=== PATIENT | male | born 1965 | race Caucasian/White ===

== ENCOUNTER → 2016-11-17 | Outpatient (CLI) | payer BC ==
--- NOTE | 2016-11-17 15:22 | RAD ---
EXAM DESCRIPTION: Left knee series. CLINICAL HISTORY: Left knee pain. COMPARISON: None. TECHNIQUE: Three views of the left knee are submitted for interpretation. FINDINGS: Significant tricompartment degenerative change with large osteophytes noted. There is no fracture, dislocation, obvious joint effusion or suspicious radiopaque foreign body. Small joint effusion noted. IMPRESSION: Advanced tricompartment degenerative change with osteophyte formation in all 3 compartments. Electronically signed by: Brandon Singer MD 11/17/2016 15:20
--- NOTE | 2016-11-17 15:22 | RAD ---
EXAM DESCRIPTION: XR KNEE 4 OR MORE VIEWS CLINICAL HISTORY: 51 y/o ,M, PAIN IN RIGHT KNEE COMPARISON: None. IMPRESSION: Joint space loss noted within the medial compartment of right knee. No osteophyte formation noted within the 3 compartments. Small joint effusion. No evidence of fracture or osseous lesion. When compared to the left knee there is significantly less degenerative changes seen within the right knee on today's exam. Electronically signed by: Brandon Singer MD 11/17/2016 15:21
--- NOTE | 2016-11-17 15:24 | RAD ---
EXAM DESCRIPTION: Pelvis series. CLINICAL HISTORY: Bilateral hip pain. COMPARISON: None. TECHNIQUE: One view was submitted for evaluation. FINDINGS: No fracture, dislocation, or radiopaque foreign body is seen. Pelvic ring appears intact. Soft tissues are unremarkable. IMPRESSION: No evidence of joint space loss on today's exam within bilateral hips. No osteophyte formation or subchondral sclerosis. Electronically signed by: Brandon Singer MD 11/17/2016 15:22
== END | disposition home or self-care (01) ==
LOC: RAD 14:35
PROVIDERS: ATTEND Orthopaedic Surgery
DX: M25.552 Pain in left hip (principal); M25.562 Pain in left knee

== ENCOUNTER → 2017-03-30 | Outpatient (CLI) | payer BC | END | disposition home or self-care (01) | LOC: LAB.O 12:47 | PROVIDERS: ATTEND Orthopaedic Surgery | DX: Z01.818 Encounter for other preprocedural examination (principal) ==

== ENCOUNTER 2017-04-13 05:49 | Inpatient (IN) | payer BC ==
--- NOTE | 2017-04-12 09:53 | HP ---
CHIEF COMPLAINT: Left knee pain. HISTORY OF PRESENT ILLNESS: Mr. Ledezma is a 51-year-old male with a history of severe knee pain bilaterally. The left seems to have always bothered him more than the right. He has had injections, anti-inflammatories and physical therapy. Because of the failure of these conservative measures, he has requested operative intervention. After discussing the risks, benefits and alternatives to operative intervention, the patient has given informed consent for total knee arthroplasty. PAST SURGICAL HISTORY: None. MEDICATIONS: None current. ALLERGIES: NO KNOWN DRUG ALLERGIES. CODE STATUS: Full code. IMMUNIZATIONS: Up to date. SOCIAL HISTORY: The patient does not smoke or use any illicit drugs. He does drink on occasion. FAMILY HISTORY: None pertinent to today's complaint. REVIEW OF SYSTEMS: Negative except as indicated in the History of Present Illness. PHYSICAL EXAMINATION: VITAL SIGNS: Blood pressure 158/103. Pulse 74. Height 6'. Weight 245. MENTAL STATUS: The patient is awake, alert, and is able to give a good history and participate in the physical. The patient is oriented to person, place and time. SKIN: Normal tone and turgor. HEENT: Normocephalic, atraumatic. Pupils equal, round and reactive. Mucosal membranes are moist. NECK: Normal range of motion. No thyromegaly, no lymphadenopathy. CHEST: Normal respiratory excursion. CARDIAC: Regular rate and rhythm. No murmurs, rubs or gallops. MUSCULOSKELETAL: Bilateral upper extremities show full active range of motion. He has intact sensation. Strength is 5/5. They are warm and well perfused. There is no deformity. The bilateral hips show full range of motion of without pain. The right knee shows range of motion from full extension to about 115 degrees. He has crepitus and pain throughout. He has no overall deformity. Sensation is intact. It is warm and well perfused. The left knee shows range of motion from 0 to about 115. He has crepitus throughout. He has a mild varus deformity. There is no varus/valgus or anterior/posterior laxity. Strength is 5/5. IMAGING: X-rays show advanced arthritis. ASSESSMENT: 1. Osteoarthritis. PLAN: The plan at this point is for total knee arthroplasty. We have discussed the risks, benefits, and alternatives to that and the patient has given informed consent. #[id number] [facility]
[~2017-04-13 05:49] MED LIST: LACTATED RINGERS 1,000 ML ONE; SODIUM CHL 0.9% 100ML MINI-BAG 200 ML IVPB ONE; SODIUM CHLORIDE 0.9% 250ML 250 ML ONE; TRANEXAMIC ACID 1,000 MG/10 ML VIAL ONE; VANCOMYCIN HCL INJ 1,000 MG VIAL IVPB ONE; ceFAZolin SODIUM 1 GM VIAL ONE
[2017-04-13] MEDS ORDERED: ceFAZolin SODIUM 1 GM VIAL ONE ×4 (06:16→20:20)
[2017-04-13] MEDS ORDERED: MORPHINE SULF *EPIDURAL* 1 MG/ML VIAL ONE (06:22)
[2017-04-13] MEDS ORDERED: MIDAZOLAM INJ 5 MG/5 ML VIAL ONE (06:22)
[2017-04-13] MEDS ORDERED: LACTATED RINGERS 1,000 ML ONE (06:23)
[2017-04-13] MEDS ORDERED: LIDOCAINE 2 % GEL 5 ML TUBE TOP ONE (06:23)
[2017-04-13] MEDS ORDERED: TRANEXAMIC ACID 1,000 MG/10 ML VIAL IV ONE (06:29)
[2017-04-13] MEDS ORDERED: fentaNYL CITRATE INJ 50 MCG/ML AMP ONE (06:35)
[2017-04-13] MEDS ORDERED: SODIUM CHL 0.9% 50ML MIN-BAG+ 50 ML IVPB ONE (06:37)
[2017-04-13] MEDS ORDERED: PROMETHAZINE HCL INJ 25 MG/ML VIAL ONE (06:37)
[2017-04-13] MEDS ORDERED: PROMETHAZINE HCL INJ 25 MG/ML VIAL IVPB ONE (06:41)
[2017-04-13] MEDS ORDERED: VANCOMYCIN HCL INJ 1,000 MG VIAL IVPB ONE ×2 (06:44→17:48)
[2017-04-13] MEDS ORDERED: SODIUM CHLORIDE 0.9% 100ML 100 ML IVPB ONE ×3 (07:03→20:20)
[2017-04-13] MEDS: VANCOMYCIN HCL INJ 1,000 MG VIAL IVPB ONE ×2 (08:08→09:05)
[2017-04-13] MEDS: ceFAZolin SODIUM 1 GM VIAL ONE ×2 (08:08→09:05)
[2017-04-13] MEDS: BUPIVACAINE 0.25% W/EPI 50 ML VIAL INJ ONE ×2 (08:08→09:35)
[2017-04-13] MEDS ORDERED: ACETAMINOPHEN 325 MG TAB PO PRN (09:19)
[2017-04-13] MEDS ORDERED: TEMAZEPAM 15 MG CAP PO PRN (09:19)
[2017-04-13] MEDS ORDERED: DEX 5% W/NACL 0.45% 1000ML 1,000 ML IVS PRN (09:19)
[2017-04-13] MEDS ORDERED: NALOXONE HCL INJ 0.4 MG/ML VIAL IV PRN (09:19)
[2017-04-13] MEDS ORDERED: ACETAMINOPHEN 500 MG TAB PO PRN (09:19)
[2017-04-13] MEDS ORDERED: BISACODYL SUPPOSITORY 10 MG PR PRN (09:19)
[2017-04-13] MEDS ORDERED: BENZOCAINE-MENTH LOZ (CEPACOL) 1 EA LOZ MT PRN (09:19)
[2017-04-13] MEDS ORDERED: MAGNESIUM HYDROXIDE 30 ML UD PO PRN (09:19)
[2017-04-13] MEDS ORDERED: MORPHINE SULFATE INJ 10 MG/ML VIAL IV PRN (09:19)
[2017-04-13] MEDS ORDERED: MORPHINE SULFATE INJ 10 MG/ML VIAL IM PRN (09:19)
[2017-04-13] MEDS ORDERED: HYDROcodone 5MG/APAP 325MG 1 EA TAB PO PRN (09:19)
[2017-04-13] MEDS ORDERED: PROMETHAZINE HCL INJ 25 MG in SODIUM CHLORIDE 0.9% 50ML 50 ML IVPB PRN (09:19)
[2017-04-13] MEDS ORDERED: TRANEXAMIC ACID INJ 1,000 MG in SODIUM CHLORIDE 0.9% 100ML 100 ML IVPB ONE (09:19)
[2017-04-13] MEDS ORDERED: ALUMINUM & MAGNESIUM HYDROXIDE 30 ML UD PO PRN (09:19)
[2017-04-13] MEDS ORDERED: SODIUM CHLORIDE 0.9% (FLUSH) 10 ML SYG IV PRN (09:19)
[2017-04-13] MEDS ORDERED: ONDANSETRON INJ 4 MG/2 ML VIAL IV PRN (09:19)
[2017-04-13] MEDS ORDERED: ZOLPIDEM TARTRATE 5 MG TAB PO PRN (09:19)
[2017-04-13] MEDS ORDERED: PROMETHAZINE HCL INJ 12.5 MG in SODIUM CHLORIDE 0.9% 50ML 50 ML IVPB PRN (09:19)
[2017-04-13] MEDS ORDERED: MORPHINE PCA 1 MG/ML 100 ML BAG IVPB ONE ×2 (09:28→09:53)
[2017-04-13] MEDS ORDERED: MORPHINE PCA 1 MG/ML 100ML 1 BAG in PREMIX BAG 1 BAG IVPB SCH (09:30)
[2017-04-13] MEDS ORDERED: IV SET AND CAP CHANGE INJ INJ SCH (09:30)
[2017-04-13] MEDS ORDERED: LIDOCAINE 1% 10 ML VIAL INJ ONE (12:00)
[2017-04-13] MEDS ORDERED: PROPOFOL 200 MG/20 ML VIAL IV ONE (12:00)
[2017-04-13] MEDS: ceFAZolin SODIUM 2 GM in SODIUM CHLORIDE 0.9% 100ML 100 ML IVPB SCH ×2 (16:08→23:53)
[2017-04-13] MEDS ORDERED: SODIUM CHLORIDE 0.9% 250ML 250 ML ONE (17:47)
[2017-04-13] MEDS: VANCOMYCIN HCL INJ 1,000 MG in SODIUM CHLORIDE 0.9% 250ML 250 ML IVPB SCH (18:22)
[2017-04-13] MEDS ORDERED: diphenhydrAMINE HCL 25 MG CAP PO PRN (19:01)
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
[2017-04-13] MEDS ORDERED: ENOXAPARIN SODIUM 30 MG/0.3 ML SYG SUBCU ONE (20:20)
[2017-04-13] MEDS: DOCUSATE CALCIUM 240 MG CAP PO SCH (21:01)
[2017-04-13] MEDS: ENOXAPARIN SODIUM 30 MG/0.3 ML SYG SUBCU SCH (21:01)
[2017-04-14] MEDS: HYDROcodone 10MG/APAP 325MG 1 EA TAB PO PRN ×5 (00:10→20:38)
[2017-04-14] MEDS ORDERED: SODIUM CHLORIDE 0.9% 250ML 250 ML ONE (05:11)
[2017-04-14] MEDS ORDERED: VANCOMYCIN HCL INJ 1,000 MG VIAL IVPB ONE (05:11)
[2017-04-14] MEDS: VANCOMYCIN HCL INJ 1,000 MG in SODIUM CHLORIDE 0.9% 250ML 250 ML IVPB SCH (06:13)
[2017-04-14] MEDS ORDERED: MAGNESIUM OXIDE 400 MG TAB ONE (07:45)
[2017-04-14] MEDS ORDERED: ceFAZolin SODIUM 1 GM VIAL ONE (07:46)
[2017-04-14] MEDS ORDERED: SODIUM CHLORIDE 0.9% 100ML 100 ML IVPB ONE (07:46)
[2017-04-14] MEDS: MAGNESIUM OXIDE 400 MG TAB PO SCH (07:51)
[2017-04-14] MEDS: CYCLOBENZAPRINE HCL 10 MG TAB PO PRN ×2 (07:51→16:57)
[2017-04-14] MEDS: ENOXAPARIN SODIUM 30 MG/0.3 ML SYG SUBCU SCH ×3 (08:01→20:39)
--- NOTE | 2017-04-14 08:15 | OP ---
DATE OF PROCEDURE: 04/13/17 PREOPERATIVE DIAGNOSIS: 1. Osteoarthritis of the knee. POSTOPERATIVE DIAGNOSIS: 1. Osteoarthritis of the knee. PROCEDURE: 1. Total knee arthroplasty. SURGEON: Vishal Gomez MD. CASE COORDINATOR: Osiel Raymond CST, SA-C. ANESTHESIA: General. COMPLICATIONS: None. FINDINGS: Severe arthritis of the knee with varus deformity. INDICATION: Mr. Ledezma has a long history of knee pain secondary to arthritis which is getting progressively worse. He has failed conservative measures and, therefore, has requested operative intervention. After discussing the risks, benefits and alternatives to that, the patient has given informed consent for total knee arthroplasty. PROCEDURE: The patient was brought to the Operating Room and placed in supine position. General anesthesia was induced and the patient's leg was sterilely prepped and draped. Following prepping and draping, the distal femur was exposed and using an intramedullary guide, the distal femoral cut was made. The appropriate sized cutting block was measured, pinned into place, and the anterior, posterior, and chamfer cuts were made. The ACL was transected and the tibia was subluxed. Both the medial and lateral menisci were removed. An intramedullary guide was used to make the proximal tibial cut. The appropriate sized base plate was placed and a trial polyethylene was placed. The trial femur was placed, the knee was reduced, and the knee was taken through a range of motion. The knee was stable in anterior, posterior, varus and valgus stress. The patella tracked anatomically without evidence of subluxation or dislocation. After trialing, the trial components were removed and the bony surfaces were thoroughly irrigated with saline. Following irrigation, the surfaces were dried and the final components were cemented into place. The excess cement was removed and the remaining cement was allowed to cure. The knee was again taken through a range of motion to confirm stability. The wound was then irrigated with saline and closure was performed using PDS to approximate the arthrotomy followed by closure of the subcutaneous tissues with a combination of running and interrupted Monocryl sutures. Sterile dressing was placed. The patient was awoken from anesthesia and taken to Recovery. POSTOPERATIVE INSTRUCTIONS: The patient will be weight-bearing as tolerated on postoperative day 1. We will begin CPM today. COMPONENTS: [employer] Triathlon knee, size 7 femur, size 7 tibia, 16 mm insert. #[id number] [facility]
--- NOTE | 2017-04-14 08:24 | RAD ---
EXAM DESCRIPTION: Knee,Left 2 or More Views CLINICAL HISTORY: 52 years Male, TKA COMPARISON: None. FINDINGS: 2 views of the left knee show postoperative changes related to previous left knee arthroplasty. No loosening or other hardware complication is seen. There is no periprosthetic fracture. Gas in the left knee joint space may be related to recent surgery, but infection should also be considered. Radiopaque structure anterior to the left knee likely represents bandage material. IMPRESSION: Postoperative changes related previous left knee arthroplasty with gas in the left knee joint space likely related to recent surgery, less likely infection. No hardware complication or other left knee abnormality. Electronically signed by: Pedro Bryan MD 04/14/2017 8:23 AM CDT Workstation: [id number]
[2017-04-14] MEDS: ceFAZolin SODIUM 2 GM in SODIUM CHLORIDE 0.9% 100ML 100 ML IVPB SCH (08:55)
--- NOTE | 2017-04-14 19:06 | PN ---
DATE: 04/14/17 SUPERVISING PHYSICIAN: Guille Davalos M.D. SUBJECTIVE: The patient has been up with Physical Therapy. He seems to be doing well. He has had fairly good control of his pain. He has been on the CPM , at this point it is only up to 75 degrees. He remains afebrile. OBJECTIVE: VITAL SIGNS: Temperature 97.4, pulse 91, blood pressure 130/81, respirations 14, satting 94% on room air. I's and O's show a negative balance of 400 with 1100 in, 1500 out. CHEST: Lungs are clear to auscultation bilaterally. HEART: Regular rate and rhythm. ABDOMEN: Soft, non-tender. Positive bowel sounds. EXTREMITIES: Left leg has an Iceman in place and bandage. Pulse distally is strong with capillary refill brisk. NEUROLOGIC: He is alert and oriented times three. LABORATORY: Postoperative H&H, hemoglobin 13.2, hematocrit 37.7. ASSESSMENT: 1. Total left knee arthroplasty secondary to significant osteoarthritis having failed to respond to outpatient treatment plan requiring surgical intervention to assist with symptom control. 2. Chronic osteoarthritis with some injuries in the past, especially involving the knees on chronic NSAIDs. 3. Acute pruritus possibly related to dry skin versus sensitivity to morphine versus Hibiclens bath prior to surgery, although showing improvement. PLAN: The patient is progressing well. Will continue to follow as he progresses through his physical therapy efforts. Will anticipate discharge at the discretion of Orthopedic services, Dr. Gomez, as well as Physical Therapy. Until discharge, continue to monitor the patient closely and treat appropriately. #[id number] [facility]
--- NOTE | 2017-04-14 19:46 | PCM.CORE ---
Physician DVT/VTE - Prophylaxis Currently: Patient already on anticoagulation therapy - Nurse DVT Assessment & Total Each Risk Factor Represents 2 Points: Major Surgery >45 minutes Each Risk Factor Represents 1 Point: Age 41-60 Each Risk Factor is 1 Point: Obesity (BMI >25) DVT Assessment Score: 4 - 3-4 High Risk Treatments: Early Ambulation *, Sequential Compression Device - 5 or more Very High Risk Treatments: Early Ambulation *, Sequential Compression Device Pharmacological: Enoxaparin 30mg SQ BID
[2017-04-14] MEDS: DOCUSATE CALCIUM 240 MG CAP PO SCH (20:39)
[2017-04-15] MEDS: HYDROcodone 10MG/APAP 325MG 1 EA TAB PO PRN ×3 (01:53→11:03)
[2017-04-15] MEDS: CYCLOBENZAPRINE HCL 10 MG TAB PO PRN ×2 (01:53→09:47)
--- NOTE | 2017-04-15 08:35 | PN ---
DATE: 04/13/17 Postoperative check SUBJECTIVE: He is doing well and he has good pain control right now. OBJECTIVE: Afebrile. Vital signs stable. Dressing is clean, dry and intact. ASSESSMENT: Status post total knee arthroplasty. PLAN: The plan at this point is for weight-bearing as tolerated on postoperative day 1. #[id number] [facility]
--- NOTE | 2017-04-15 08:36 | PN ---
DATE: 04/14/17 SUBJECTIVE: Mr. Ledezma seems to be doing well. He is using his CPM as instructed. OBJECTIVE: Afebrile. Vital signs stable. Dressing is clean, dry and intact. ASSESSMENT: Status post total knee arthroplasty. PLAN: The plan at this point is to continue with physical therapy and we will progress as tolerated. #[id number] [facility]
--- NOTE | 2017-04-15 08:38 | PN ---
DATE: 04/15/17 SUBJECTIVE: Mr. Ledezma is doing well. He is up to a chair and he has been walking several times. OBJECTIVE: Afebrile. Vital signs stable. Wound is clean. There are no signs or symptoms of infection. ASSESSMENT: Status post total knee arthroplasty. PLAN: It looks as though he may be doing well enough that he could be discharged today. We will have him work with physical therapy today and discharge him with appropriate followup. #[id number] [facility]
[2017-04-15] MEDS ORDERED: SODIUM CHLORIDE 0.9% (FLUSH) 10 ML SYG IV SCH (09:00)
[2017-04-15] MEDS: MAGNESIUM OXIDE 400 MG TAB PO SCH (09:47)
[2017-04-15] MEDS: ENOXAPARIN SODIUM 30 MG/0.3 ML SYG SUBCU SCH (09:52)
[2017-04-15 10:38] VITALS: BP 144/80; TEMP 97.6
[2017-04-15 14:45] VITALS: O2SAT 94
[2017-04-16] MEDS ORDERED: BISACODYL SUPPOSITORY 10 MG PR ONE (21:00)
[2017-04-16] MEDS ORDERED: MAGNESIUM HYDROXIDE 30 ML UD PO ONE (21:00)
--- NOTE | 2017-04-17 13:42 | DS ---
SUPERVISING PHYSICIAN: Guille Davalos MD DISCHARGE DIAGNOSIS: 1. Total left knee arthroplasty secondary to significant osteoarthritis having failed to respond to outpatient treatment plan requiring surgical intervention to assist with symptom control, postoperative day #2. 2. Chronic osteoarthritis with some injuries in the past, especially involving the knees, on chronic NSAIDs. 3. Acute pruritus possibly related to dry skin versus sensitivity to morphine versus Hibiclens bath prior to surgery, showing improvement.prior to discharge. LABORATORY: Postoperative hemoglobin and hematocrit 13.2 and 37.7. HOSPITAL COURSE: Mr. Ledezma was admitted to medical/surgical floor postoperative for a left total knee as noted above. He was seen in consultation and followed closely as he progressed through his physical therapy and rehabilitation efforts. The patient did clinically well and was felt enough to be discharged to continue with his outpatient treatment plan. Mr. Ledezma was discharged on 04/15/17 to have close clinical followup with Dr. Gomez as scheduled on 04/29/17 at 9:15. [facility], evaluation scheduled for 04/16/17. He was instructed to resume his home medications prior and take new medications as prescribed. New medications at discharge: 1. Flexeril 10 mg tablets every 8 hours as needed. 2. Hydrocodone 10 mg/325 APAP, 1 every 4 hours as needed prescribed by Dr. Gomez. DISCHARGE DIET: Regular as tolerated. ACTIVITIES: Increase as tolerated as per physical therapy. CONDITION ON DISCHARGE: Stable and improved. #[id number] [facility]
== END 2017-04-15 14:10 | disposition home or self-care (01) | DRG 470 ==
LOC: AMB 05:49 → EDSTATUS 10:00 → MS 10:36
PROVIDERS: ADMIT Orthopaedic Surgery; ATTEND Orthopaedic Surgery
PROC: 0SRD0J9 Replacement of Left Knee Joint with Synthetic Substitute, Cemented, Open Approach (ICD-10-PCS; principal; 2017-04-13 07:15)
DX: M17.12 Unilateral primary osteoarthritis, left knee (principal); L29.9 Pruritus, unspecified; Z87.891 Personal history of nicotine dependence; Z87.828 Personal history of other (healed) physical injury and trauma

== ENCOUNTER 2017-04-30 05:57 | Day surgery (SDC) | payer BC ==
[2017-04-30] MEDS ORDERED: LACTATED RINGERS 1,000 ML ONE (06:27)
[2017-04-30] MEDS ORDERED: LIDOCAINE 1% 10 ML VIAL INJ ONE (07:00)
[2017-04-30] MEDS ORDERED: PROPOFOL 200 MG/20 ML VIAL IV ONE (07:00)
[2017-04-30] MEDS ORDERED: fentaNYL CITRATE INJ 50 MCG/ML AMP ONE (08:13)
[2017-04-30] MEDS ORDERED: HYDROcodone 5MG/APAP 325MG 1 EA TAB ONE (08:56)
[2017-04-30 09:34] VITALS: TEMP 97.4
[2017-04-30 09:36] VITALS: BP 126/84; O2SAT 99
--- NOTE | 2017-06-02 10:33 | OP ---
DATE OF PROCEDURE: 04/30/17 PREOPERATIVE DIAGNOSIS: 1. Arthrofibrosis of the knee. POSTOPERATIVE DIAGNOSIS: 1. Arthrofibrosis of the knee. PROCEDURE: 1. Manipulation under anesthesia. SURGEON: Vishal Gomez MD. NEEDLEWORKER: Osiel Raymond CST, SA-C. ANESTHESIA: Conscious sedation. COMPLICATIONS: None. FINDINGS: Preprocedure range of motion from approximately 5 to 90 degrees. Postprocedure range of motion, near full extension to about 110 to 115 degrees. INDICATION: Mr. Ledezma has a history of total knee arthroplasty. Although the arthroplasty was successful, he has been unable to progress to the point where we need him in physical therapy. As such, we talked about options and closed manipulation was suggested. After discussing the risks, benefits and alternatives to that, he has given informed consent for that. PROCEDURE: The patient was brought to the Operating Room and placed in supine position. Sedation was administered and once adequate sedation and relaxation had been achieved, the patient's knee was fully flexed to about 110 to 115 degrees. It was held there and scar tissue was palpably and audibly ruptured. It was near full extension with some breaking of scar tissue as well. Subsequent to that, fluoroscopic images were taken to ensure no acute issues with the knee had arisen during the procedure. The patient was then allowed to come out of anesthesia and taken back to the Day Surgery Unit. POSTOPERATIVE INSTRUCTIONS: He is going to be given immediate physical therapy and will be attending five days a week instead of three. We will see him back in about ten days. #[id number] [facility]
== END 2017-04-30 09:15 | disposition home or self-care (01) ==
LOC: AMB 05:57
PROVIDERS: ATTEND Orthopaedic Surgery
DX: M24.662 Ankylosis, left knee (principal); Z96.652 Presence of left artificial knee joint; Z79.899 Other long term (current) drug therapy
CPT/HCPCS: 01380; 27570; 76000; 87070; J3010; J3490; J7120

== ENCOUNTER → 2018-12-26 | Outpatient (CLI) | payer BC ==
--- NOTE | 2018-12-26 10:40 | RAD ---
Single frontal view pelvis Indication: M25.561, M25.551 Comparison: November 17, 2016 Impression: No fracture identified. Mild bilateral hip joint space narrowing with minimal acetabular roof osteophyte formation. Electronically signed by: Thong Monroy MD 12/26/2018 10:37 AM CDT
--- NOTE | 2018-12-26 10:40 | RAD ---
4 mm right knee Indication: M25.561, M25.551 Comparison: None. Impression: Moderate to severe narrowing medial knee compartment with mild areas of cortical remodeling. Mild to moderate narrowing lateral and patellofemoral compartments. [id number] tricompartmental osteophytes. Moderate size knee effusion. No acute fracture. Electronically signed by: Thong Monroy MD 12/26/2018 10:37 AM CDT
== END ==
LOC: RAD 07:54
PROVIDERS: ATTEND Orthopaedic Surgery
DX: M25.561 Pain in right knee (principal); M25.551 Pain in right hip; M25.861 Other specified joint disorders, right knee; M25.851 Other specified joint disorders, right hip; M25.852 Other specified joint disorders, left hip

== ENCOUNTER → 2019-05-25 | Outpatient (CLI) | payer BC | LOC: LAB.O 11:52 | PROVIDERS: ATTEND Orthopaedic Surgery | DX: Z01.818 Encounter for other preprocedural examination (principal) ==

== ENCOUNTER 2019-06-14 05:53 | Inpatient (IN) | payer BC ==
--- NOTE | 2019-06-08 09:29 | HP ---
CHIEF COMPLAINT: Right knee pain. HISTORY OF PRESENT ILLNESS: Rupesh is a 54-year-old male with a history of pain in the right knee that has been present for what he says is at least 10+ years. It has been getting progressively worse and is now affecting his daily activities. He has gotten severe limitations in range of motion secondary to the pain. He is having difficulty with activities at work. He has had left sided total knee replacement and states he is requesting right sided replacement. He has had conservative measures which have included injections, physical therapy, anti-inflammatories and activity modification. Unfortunately, these have failed to give him relief. Because of the ongoing pain and dysfunction, he has requested operative intervention. After discussing the risks, benefits and alternatives to that, he has given informed consent. Today, his pain level is a 5 and he does not associate this with any neurologic symptoms. He has had no trauma recently, but does work quite a bit on his legs. PAST SURGICAL HISTORY: 1. Total knee arthroplasty on the contralateral side. MEDICATIONS: None. PAIN CONTRACT: None. ALLERGIES: NO KNOWN DRUG ALLERGIES. CODE STATUS: Full code. IMMUNIZATIONS: Up to date. SOCIAL HISTORY: The patient does not smoke or use recreational drugs. He does drink on occasion. FAMILY HISTORY: None pertinent to today's complaint. REVIEW OF SYSTEMS: Positive for arthritis, otherwise negative except as indicated in the History of Present Illness. PHYSICAL EXAMINATION: VITAL SIGNS: Blood pressure 141/85. Pulse 72. Height 5'11". Weight 243 pounds. MENTAL STATUS: The patient is awake, alert, and is able to give a good history and participate in the physical. The patient is oriented to person, place and time. SKIN: Normal tone and turgor. HEENT: Normocephalic, atraumatic. Pupils equal, round and reactive. Mucosal membranes are moist. NECK: Normal range of motion. No thyromegaly, no lymphadenopathy. CHEST: Normal respiratory excursion. CARDIAC: Regular rate and rhythm. No murmurs, rubs or gallops. MUSCULOSKELETAL: The bilateral upper extremities show full active range of motion. He has intact sensation. They are warm and well perfused. There is no deformity and no crepitus. Strength is 5/5. He has well-developed muscular build in the upper extremities. The left lower extremity shows full extension and a well-healed wound anteriorly. He has flexion to at least 120 degrees. Strength is 5/5. It is warm and well perfused. There is no varus/valgus or anterior/posterior laxity. There is no malalignment or crepitus with range of motion of any of the left lower extremity joints. Hip shows flexion to 105 degrees, abduction to at least 45 degrees, internal rotation to 30 degrees and external rotation to about 60 degrees. The right lower extremity shows full flexion of the hip equal to the contralateral side. He has no crepitus with pain with range of motion of the hip. He has internal rotation to 30 degrees, external rotation to 60 degrees. The knee shows full extension and he has severe pain to palpation. Sensation is intact in the extremity. He has crepitus throughout his range of motion and he maintains only about 85 degrees of range of motion today in the knee. He has a moderate sized effusion. GAIT: He has an antalgic gait. IMAGING: My interpretation of his x-rays shows severe arthritis with flattening of the condyles and osteophyte formation. My interpretation of the pelvic x- rays shows well aligned pelvis x-ray with no significant abnormalities and he has well maintained joint spaces. ASSESSMENT: 1. Severe arthritis that has failed conservative measures. PLAN: The plan at this point is for total knee arthroplasty. Ledezma and I have discussed the risks, benefits, and alternatives to that and the patient has given informed consent. [facility][id number] [facility]
[~2019-06-14 05:53] MED LIST changes: +SODIUM CHL 0.9% 100ML MINI-BAG 100 ML IVPB ONE; -SODIUM CHL 0.9% 100ML MINI-BAG 200 ML IVPB ONE; +SODIUM CHLORIDE 0.9% 100ML 100 ML IVPB ONE
[2019-06-14] MEDS ORDERED: BUPIVACAINE 0.5% 30 ML VIAL INJ ONE (06:27)
[2019-06-14] MEDS ORDERED: ceFAZolin SODIUM 1 GM VIAL ONE (06:27)
[2019-06-14] MEDS ORDERED: ACETAMINOPHEN IV 1000MG 100 ML ONE (06:29)
[2019-06-14] MEDS ORDERED: MORPHINE SULFATE *EPIDURAL* 0.5 MG/ML VIAL ONE (06:30)
[2019-06-14] MEDS ORDERED: fentaNYL CITRATE INJ 50 MCG/ML AMP ONE (06:30)
[2019-06-14] MEDS ORDERED: MIDAZOLAM INJ 5 MG/5 ML VIAL ONE (06:30)
[2019-06-14] MEDS ORDERED: KETAMINE HCL 50 MG/ML SYG IV ONE (06:30)
[2019-06-14] MEDS: BUPIVACAINE 0.5% 30 ML VIAL INJ ONE ×2 (07:58→08:49)
[2019-06-14] MEDS: ceFAZolin SODIUM 1 GM VIAL ONE ×2 (07:59→09:02)
[2019-06-14] MEDS: BUPIVACAINE LIPOSOME 13.3 MG/ML VIAL INJ ONE ×2 (07:59→08:49)
[2019-06-14] MEDS: VANCOMYCIN HCL INJ 1,000 MG VIAL IVPB ONE ×2 (07:59→09:02)
[2019-06-14] MEDS ORDERED: traMADol HCL 50 MG TAB PO PRN (09:34)
[2019-06-14] MEDS ORDERED: PROMETHAZINE HCL INJ 25 MG in SODIUM CHLORIDE 0.9% 50ML 50 ML IVPB PRN (09:34)
[2019-06-14] MEDS ORDERED: ALUMINUM & MAGNESIUM HYDROXIDE 30 ML UD PO PRN (09:34)
[2019-06-14] MEDS ORDERED: NALOXONE HCL INJ 0.4 MG/ML VIAL IV PRN (09:34)
[2019-06-14] MEDS ORDERED: MORPHINE SULFATE INJ 10 MG/ML VIAL IM PRN (09:34)
[2019-06-14] MEDS ORDERED: MORPHINE SULFATE INJ 10 MG/ML VIAL IV PRN (09:34)
[2019-06-14] MEDS ORDERED: CYCLOBENZAPRINE HCL 10 MG TAB PO PRN (09:34)
[2019-06-14] MEDS ORDERED: TEMAZEPAM 15 MG CAP PO PRN (09:34)
[2019-06-14] MEDS ORDERED: HYDROcodone 10MG/APAP 325MG 1 EA TAB PO PRN (09:34)
[2019-06-14] MEDS ORDERED: SODIUM CHLORIDE 0.9% (FLUSH) 10 ML SYG IV PRN (09:34)
[2019-06-14] MEDS ORDERED: ONDANSETRON INJ 4 MG/2 ML VIAL IV PRN (09:34)
[2019-06-14] MEDS ORDERED: ZOLPIDEM TARTRATE 5 MG TAB PO PRN (09:34)
[2019-06-14] MEDS ORDERED: BENZOCAINE-MENTH LOZ (CEPACOL) 1 EA LOZ MT PRN (09:34)
[2019-06-14] MEDS ORDERED: DEX 5% W/NACL 0.45% 1000ML 1,000 ML IVS PRN (09:34)
[2019-06-14] MEDS ORDERED: MAGNESIUM HYDROXIDE 30 ML UD PO PRN (09:34)
[2019-06-14] MEDS ORDERED: TRANEXAMIC ACID INJ 1,000 MG in SODIUM CHLORIDE 0.9% 100ML 100 ML IVPB ONE (09:34)
[2019-06-14] MEDS ORDERED: HYDROcodone 5MG/APAP 325MG 1 EA TAB PO PRN (09:34)
[2019-06-14] MEDS ORDERED: PROMETHAZINE HCL INJ 12.5 MG in SODIUM CHLORIDE 0.9% 50ML 50 ML IVPB PRN (09:34)
[2019-06-14] MEDS ORDERED: ACETAMINOPHEN 325 MG TAB PO PRN (09:34)
[2019-06-14] MEDS ORDERED: BISACODYL SUPPOSITORY 10 MG PR PRN (09:34)
[2019-06-14] MEDS ORDERED: ACETAMINOPHEN 500 MG TAB PO PRN (09:34)
[2019-06-14] MEDS ORDERED: IV SET AND CAP CHANGE INJ INJ SCH (10:00)
[2019-06-14] MEDS ORDERED: MORPHINE PCA 1 MG/ML 100 ML BAG IVPB SCH (10:00)
[2019-06-14] MEDS: diphenhydrAMINE HCL 50 MG/ML VIAL IV PRN (12:57)
--- NOTE | 2019-06-14 12:59 | CONS ---
SUPERVISING PHYSICIAN: Guille Davalos MD REASON FOR CONSULTATION: Medical management. HISTORY OF PRESENT ILLNESS: This is a 54 year-old male patient who came to the hospital for a total knee arthroplasty. He has had osteoarthritis for several years. Conservative measures have failed, therefore, he underwent surgery today. There were no intraoperative complications. At the time of my examination, the patient denies any pain. He has some numbness in his toes but otherwise with no complaints. PAST MEDICAL HISTORY: The patient denies any significant past medical history. PAST SURGICAL HISTORY: Left total knee arthroplasty in the past. CURRENT MEDICATIONS: He does not take any home medications. ALLERGIES: No known drug allergies. FAMILY HISTORY: Reviewed and noncontributory. SOCIAL HISTORY: No smoking, occasional beer, no illegal drugs. He is and he works. REVIEW OF SYSTEMS: CONSTITUTIONAL: No fever, chills, recent weight loss or weight gain. HEENT: No headaches, vision changes, ear pain, nasal congestion or throat pain. RESPIRATORY: No cough. No hemoptysis. No pleuritic chest pain. CARDIOVASCULAR: No chest pain or palpitations. No peripheral edema. . GASTROINTESTINAL: No nausea, vomiting, diarrhea, constipation or abdominal pain. GENITOURINARY: No history of frequency or flank pain. MUSCULOSKELETAL: Right knee discomfort prior to surgery. Postoperatively without any pain. NEUROLOGIC: No seizures or syncope. No paresthesias. ENDOCRINE: No polydipsia, polyuria or polyphagia. No heat or cold intolerance. HEMATOLOGIC: No easy bruising or transfusion reaction. PHYSICAL EXAMINATION: VITAL SIGNS: Blood pressure 118/79, heart rate 60, respiratory rate 16. Temperature 98.8, oxygen saturation 97%. GENERAL: Mr. Ledezma is a 54 year-old male patient who is in no active distress currently. HEENT: The patient is alert and oriented. CHEST: Lungs are clear to auscultation bilaterally. HEART: Regular rate and rhythm, normal S1, S2. ABDOMEN: Soft, positive bowel sounds. GENITOURINARY: Exam deferred. EXTREMITIES: Lower extremities with no edema. 2+ pulses. Capillary refill less than 2 seconds. He does have an Max type dressing over the right lower extremity with ice bag in place. IMPRESSION: 1. Right knee osteoarthritis, status post total knee arthroplasty. PLAN: At this time, the patient will be admitted to the hospital for postoperative care for his right total knee arthroplasty as well as physical therapy as well as pain control. Anticoagulation will be done this evening. Daily assessments will be done to monitor his status and need for ongoing physical therapy. [facility][id number] [facility]
[2019-06-14] MEDS ORDERED: raNITIdine HCL INJ 25 MG/ML VIAL IV ONE (13:00)
[2019-06-14] MEDS ORDERED: DEXAMETHASONE INJ 10 MG/ML VIAL IV ONE (13:00)
[2019-06-14] MEDS ORDERED: PROPOFOL 200 MG/20 ML VIAL IV ONE (13:00)
[2019-06-14] MEDS ORDERED: diphenhydrAMINE HCL 50 MG/ML VIAL IV ONE (13:00)
[2019-06-14] MEDS ORDERED: LIDOCAINE 1% 10 ML VIAL INJ ONE (13:00)
[2019-06-14] MEDS ORDERED: SODIUM CHLORIDE 0.9% 50 ML VIAL INJ ONE (13:00)
[2019-06-14] MEDS ORDERED: ceFAZolin SODIUM 2 GRAMS PREMI 50 ML IVPB ONE ×2 (16:00→19:40)
[2019-06-14] MEDS ORDERED: SODIUM CHLORIDE 0.9% 250ML 250 ML ONE (16:00)
[2019-06-14] MEDS ORDERED: VANCOMYCIN HCL INJ 1,000 MG VIAL IVPB ONE (16:00)
[2019-06-14] MEDS: ceFAZolin SODIUM 2 GRAMS PREMI 2 GM in PREMIX BAG 1 BAG IVPB SCH ×2 (16:31→23:39)
--- NOTE | 2019-06-14 17:07 | RAD ---
EXAM DESCRIPTION: Knee,Right 1 or 2 Views CLINICAL HISTORY: 54 years, Male, TKA COMPARISON: December 26, 2018 TECHNIQUE: Two views right knee FINDINGS: Postoperative right knee with total knee replacement is noted with soft tissue gas and intra-articular gas with good apposition of the opaque femoral and tibial components to the underlying bone. A patellar articular surface has not been placed. Alignment is essentially anatomic. No periprosthetic fractures are noted. IMPRESSION: 1. Satisfactory right total knee replacement in satisfactory alignment without patellar articular surface placed. Electronically signed by: Patrick Morris MD 06/14/2019 5:05 PM CDT
[2019-06-14] MEDS: CELECOXIB 100 MG CAP PO SCH (17:44)
[2019-06-14] MEDS: VANCOMYCIN HCL INJ 1,000 MG in SODIUM CHLORIDE 0.9% 250ML 250 ML IVPB SCH (17:47)
[2019-06-14] MEDS ORDERED: ENOXAPARIN SODIUM 30 MG/0.3 ML SYG SUBCU ONE (19:40)
[2019-06-14] MEDS ORDERED: DOCUSATE CALCIUM 240 MG CAP PO SCH (21:00)
[2019-06-14] MEDS: ENOXAPARIN SODIUM 30 MG/0.3 ML SYG SUBCU SCH (23:09)
[2019-06-15] MEDS ORDERED: SODIUM CHLORIDE 0.9% 250ML 250 ML ONE (05:36)
[2019-06-15] MEDS ORDERED: VANCOMYCIN HCL INJ 1,000 MG VIAL IVPB ONE (05:36)
[2019-06-15] MEDS: VANCOMYCIN HCL INJ 1,000 MG in SODIUM CHLORIDE 0.9% 250ML 250 ML IVPB SCH (05:40)
[2019-06-15] MEDS ORDERED: ceFAZolin SODIUM 2 GRAMS PREMI 50 ML IVPB ONE (07:17)
[2019-06-15] MEDS: ceFAZolin SODIUM 2 GRAMS PREMI 2 GM in PREMIX BAG 1 BAG IVPB SCH (07:21)
[2019-06-15] MEDS: CELECOXIB 100 MG CAP PO SCH (07:21)
[2019-06-15] MEDS ORDERED: MAGNESIUM OXIDE 400 MG TAB PO SCH (09:00)
[2019-06-15 09:08] VITALS: O2SAT 98
[2019-06-15] MEDS: diphenhydrAMINE HCL 50 MG/ML VIAL IV PRN (11:15)
--- NOTE | 2019-06-15 11:51 | PN ---
DATE: 06/15/19 SUBJECTIVE: Rupesh is doing extremely well. He is bending his knee to 100 degrees actively. Pain is very well controlled. OBJECTIVE: Afebrile. Vital signs stable. Dressing is clean, dry and intact. ASSESSMENT: Status post total knee arthroplasty. PLAN: The plan at this point is for him to likely be discharged today. He has met all goals. [facility][id number]
--- NOTE | 2019-06-15 11:57 | RAD ---
PROVIDED CLINICAL HISTORY/REASON FOR EXAM: RIGHT TKA Findings/impression: One intraoperative fluoroscopic image of a right knee arthroplasty. Dose: Not documented Time: 0.5 seconds Electronically signed by: Alexander Vidal MD 06/15/2019 11:55 AM CDT
[2019-06-15] MEDS: ENOXAPARIN SODIUM 30 MG/0.3 ML SYG SUBCU SCH (12:13)
[2019-06-15 15:12] VITALS: BP 112/76; TEMP 98.1
[2019-06-16] MEDS ORDERED: SODIUM CHLORIDE 0.9% (FLUSH) 10 ML SYG IV SCH (09:00)
--- NOTE | 2019-06-16 09:13 | OP ---
DATE OF PROCEDURE: 06/14/19 PREOPERATIVE DIAGNOSIS: 1. Right knee osteoarthritis. POSTOPERATIVE DIAGNOSIS: 1. Right knee osteoarthritis. PROCEDURE: 1. Total knee arthroplasty. SURGEON: Vishal Gomez MD. WIRER PASSENGER CAR: Osiel Raymond CST, SA-C. ANESTHESIA: General anesthesia. COMPLICATIONS: None. FINDINGS: Severe arthritis with varus deformity. INDICATION: Rupesh has a long history of severe knee pain for which he has tried conservative measures. Unfortunately, he has failed to gain relief. Because of that, he has requested operative intervention. After discussing the risks, benefits and alternatives to that, the patient has given informed consent for that. PROCEDURE: The patient was brought to the Operating Room and placed in supine position. General anesthesia was induced and the patient's leg was sterilely prepped and draped. Following prepping and draping, the distal femur was exposed and using an intramedullary guide, the distal femoral cut was made. The appropriate sized cutting block was measured, pinned into place, and the anterior, posterior, and chamfer cuts were made. The ACL was transected and the tibia was subluxed. Both the medial and lateral menisci were removed. An intramedullary guide was used to make the proximal tibial cut. The appropriate sized base plate was placed and a trial polyethylene was placed. The trial femur was placed, the knee was reduced, and the knee was taken through a range of motion. The knee was stable in anterior, posterior, varus and valgus stress. The patella tracked anatomically without evidence of subluxation or dislocation. After trialing, the trial components were removed and the bony surfaces were thoroughly irrigated with saline. Following irrigation, the surfaces were dried and the final components were cemented into place. The excess cement was removed and the remaining cement was allowed to cure. The knee was again taken through a range of motion to confirm stability. The wound was then irrigated with saline and closure was performed using PDS to approximate the arthrotomy followed by closure of the subcutaneous tissues with a combination of running and interrupted Monocryl sutures. Sterile dressing was placed. The patient was awoken from anesthesia and taken to Recovery. POSTOPERATIVE PLAN: The patient will be weight-bearing as tolerated on postoperative day 1. COMPONENTS: 1jiajie Triathlon knee, size 7 femur, size 7 tibia, 11 mm insert. [facility][id number] [facility]
--- NOTE | 2019-06-16 20:10 | DS ---
SUPERVISING PHYSICIAN: Guille Davalos M.D. DISCHARGE DIAGNOSIS: 1. Right knee osteoarthritis, status post right total knee arthroplasty performed by Dr. Vishal Gomez, orthopedic surgeon. HISTORY OF PRESENT ILLNESS: This is a 54 year-old male patient who was admitted to the hospital for a right total knee arthroplasty. He has had osteoarthritis for many years prior to his surgery. Conservative treatments have failed, so he has requested Dr. Vishal Gomez, orthopedic surgeon for operative intervention. He had no problems intraoperatively. He was admitted to the Medical/Surgical floor postoperatively. HOSPITAL COURSE: His pain was well controlled and his physical therapy was started. He also had anticoagulation as per protocol. He has met his goals for discharge and he will followup with Dr. Gomez in the morning in the office. LABORATORY: Hemoglobin and history were 14.2 and 41. Glucose was 109. Urinalysis was unremarkable. Urine drug screen was negative. DISCHARGE PLAN: The patient will be discharged home in stable condition. He is to resume his previous diet. Activity is as per Physical Therapy. [facility]. He has a followup appointment in the morning for 9:00 AM on 07/03/2019. He will be discharged with his [place] as well as his Cyclobenzaprine and Xarelto. He is to return to the hospital or followup with Dr. Gomez's office for any problems or complications. DISCHARGE MEDICATIONS: 1. Cyclobenzaprine. 2. Hydrocodone. 3. Xarelto. #[id number] [facility]
[2019-06-17] MEDS ORDERED: BISACODYL SUPPOSITORY 10 MG PR ONE (21:00)
[2019-06-17] MEDS ORDERED: MAGNESIUM HYDROXIDE 30 ML UD PO ONE (21:00)
== END 2019-06-15 14:45 | disposition home or self-care (01) | DRG 470 ==
LOC: AMB 05:53 → MS 11:04
PROVIDERS: ADMIT Orthopaedic Surgery; ATTEND Nurse Practitioner Acute Care
PROC: 3E0T3BZ Introduction of Anesthetic Agent into Peripheral Nerves and Plexi, Percutaneous Approach (ICD-10-PCS; 2019-06-14)
PROC: 3E0T33Z Introduction of Anti-inflammatory into Peripheral Nerves and Plexi, Percutaneous Approach (ICD-10-PCS; 2019-06-14)
PROC: 0SRC0J9 Replacement of Right Knee Joint with Synthetic Substitute, Cemented, Open Approach (ICD-10-PCS; principal; 2019-06-14 06:47)
DX: M17.11 Unilateral primary osteoarthritis, right knee (principal); Z96.652 Presence of left artificial knee joint